=== PATIENT | female | born 1950 | race African-American/Black ===

== ENCOUNTER 2020-03-14 19:44 | Emergency (ER) | payer OTHER ==
[~2020-03-14] VITALS: Ht 162.6 cm; Wt 65.3 kg
--- NOTE | ~2020-03-14 | EMS ---
[address] [address] EMS Patient Care Report Name: PATRICIA SHELTON Room #: REG LISA Carson#: [id number] Admission: 03/14/20 Attend Phys: Discharge: Date of : 50 Report #: [id number] THIS REPORT FOR: //name// Report Transmitted: 03/15/2020 00:13 EMS Care Summary [place], [place]/[facility] Incident [id number] @ 03/14/2020 18:57 Incident Location [address] [place], [place] [id number] Patient PATRICIA SHELTON Female, 69 Years 1950 Patient Address [address] [place] [id number] Patient History Neurological Condition - Other, Patient Allergies Aspirin, Patient Medications None Reported, Xanax, Warfarin, Chief Complaint NAUSEA / VOMITING Disposition Transported No Lights/[place] Dispatch Reason Hemorrhage/Laceration Transported To [facility] Narrative ON SCENE. M35 DONS PPE AND SPEAKS WITH P29 CREW OUTSIDE. PT FOUND WITH P29 CREW IN APARTMENT. PT IS IN MINOR DISTRESS BUT IS ABLE TO SPEAK IN FULL SENTENCES. [facility] [address] [place] [address] EMS Patient Care Report Name: PATRICIA SHELTON Room #: REG LISA Carson#: [id number] Admission: 03/14/20 Attend Phys: Discharge: Date of : 50 Report #: [id number] PT STATES SHE HAS BEEN OMITING AND HAVING DIAHREA FOR 2 DAYS AND HAS BEEN UNABLE TO KEEP FOOD OR DRINK DOWN. PT IS AAOX4 GCS 15 AND CONSENTING TO TREATMENT AND TRANSPORT. PT WALKS WITH MINOR ASSISTANCE TO STRETCHER IN APARTMENT. P29 STATE VITAL SIGNS ARE WITHIN NORMAL LIMITS. PT HAS MASK ON FACE PRIOR TO ARRIVAL. PT REQUESTS VOMIT SACK WHILE BEING MOVED TO ELEVATOR. PT IS ALSO COMPLAINING OF NUMBNESS IN EXTREMETIES AND CRAMPING. PT IS LOADED TO AMBULANCE AND IV ACCESS IS EVALUATED. PT STATES SHE USUALLY NEEDS A VEIN FINDER. M35 DOES CANCELS IV ACCESS ATTEMPT. ORAL ZOFRAN IS GIVEN TO PT. TRANSPORT INITIATED. PT HAS VOMIT BAG READY AND IS IN ABVIOUS DISTRESS, BUT DOES NOT VOMIT. PT STATES SHE FEELS SLIGHT RELEIFS AFTER OFRAN ADMIN. ARRIVAL AT HOSPITAL. PT IS MOVED FROM AMBULANCE INTO [facility] WITHOUT INCIDENT AND ONTO BED SAFELY. PT CARE SUCCESSFULLY TRANSFERRED TO [facility] NURSING STAFF. Initial Vitals @19:19P: 85,R: 20,BP: 108/68,Pain: 10/10,GCS: 15,Glucose: 120,SpO2: 100,Revised Trauma: 12, @19:32P: 96,R: 18,BP: 137/90,Pain: 10/10,GCS: 15,CO: 2,SpO2: 97,Revised Trauma: 12, Assessments @19:40MENTAL:Person Oriented,Event Oriented,Time Oriented,Place Oriented,SKIN:HEENT:Eyes: Left Pupil: 3-mm,Eyes: Right Pupil: 3-mm,Neck/Airway: No Abnormalities,LUNG SOUNDS:Right Upper: Other,General: Diarrhea,General: Nausea,Left Upper: Other,General: Vomiting,Left Lower: No Abnormalities,Right Lower: No Abnormalities,ABDOMEN:Right Upper: Other,General: Diarrhea,General: Nausea,Left Upper: Other,General: Vomiting,Left Lower: No Abnormalities,Right Lower: No Abnormalities,PELVIS//GI:Rectal Bleeding,EXTREMITIES:Left Arm: Abnormal Sensation,Left Leg: Abnormal Sensation,Right Leg: Abnormal Sensation,Right Arm: Abnormal Sensation,Capillary Refill: Right Upper: 3 Sec,PULSE:Radial: 2+ Normal,NEURO:@19:40MENTAL:SKIN:HEENT:LUNG SOUNDS:General: Nausea,ABDOMEN:General: Nausea,PELVIS//GI:EXTREMITIES:PULSE:NEURO: Impression COVID-19 - Suspected - no known exposure Procedures @19:30StretcherResponse: Unchanged@19:10ALS AssessmentResponse: UnchangedSucceeded@19:37Zofran - 4 Milligrams (mg) - OralResponse: Unchanged Timeline 18:54,Call Received 18:54,Dispatch Notified 18:57,Dispatched 18:57,En Route 19:04,On Scene [address] [address] EMS Patient Care Report Name: PATRICIA SHELTON Room #: REG LISA Carson#: [id number] Admission: 03/14/20 Attend Phys: Discharge: Date of : 50 Report #: [id number] 19:10,At Patient 19:10,ALS Assessment,Response: UnchangedSucceeded, 19:19,BP: 108/68 M,PULSE: 85,RR: 20 R,SPO2: 100 Ox,ETCO2: ,B,PAIN: 10,GCS: 15, 19:23,Depart Scene 19:30,Stretcher,Response: Unchanged 19:32,BP: 137/90 M,PULSE: 96,RR: 18 R,SPO2: 97 Ox,ETCO2: ,BG: ,PAIN: 10,GCS: 15, 19:37,Zofran - 4 Milligrams (mg) - Oral,Response: Unchanged 19:40,At Destination 20:03,Call Closed Disclaimer [email or web address] Copyright 2020 [employer] This EMS Care Summary contains data elements from the applicable legal record (which may be displayed differently). It is designed to provide pertinent information for the following purposes: continuity of care, clinical quality, and state data reporting. The complete legal record is available to ED staff and administrators of the receiving hospital in [employer]s Patient Tracker. All data is provided "as is."
[~2020-03-14 19:44] MED LIST: ADULT LOW DOSE81 MG; ALPRAZOLAM 0.50.5 M1; BUDEPRION SR150 MG; COUMADIN 5 MG TA5 M1; NEXIUM40 MG; OMEGA-3100 MG; SENNA S TABLET1 EACH PO; STOOL SOFTENER240 MG
[2020-03-14 20:53] LABS: ABSOLUTE NEUTROPHILS 2.7 thou/uL (1.4-8.2); BASOPHILS 0.7 % (0.0-2.0); HEMATOCRIT 30.3 % (37.0-47.0); HEMOGLOBIN 10.2 gm/dL (12.0-15.0); LYMPHOCYTES 31.2 % (24.0-44.0); MCH 29.9 pg (26.0-34.0); MCHC 33.6 g/dL (28.0-37.0); MONOCYTES 5.2 % (1.0-8.0); PLATELET COUNT 260 thou/uL (150-400); POLYS 61.9 % (36.0-66.0); RDW 14.4 % (10.5-14.5); WBC 4.4 thou/uL (4.0-11.0)
[2020-03-14 21:05] LABS: CALCIUM 9.3 mg/dL (8.5-10.1); CREATININE 1.5 mg/dL (0.6-1.0); POTASSIUM 3.1 mmol/L (3.5-5.1)
[2020-03-14 21:11] LABS: TOTAL BILIRUBIN 0.5 mg/dL (0.2-1.0); TOTAL PROTEIN 7.9 g/dL (6.4-8.2)
[2020-03-14 21:51] LABS: URINE BILIRUBIN NEGATIVE (Negative); URINE BLOOD NEGATIVE (Negative); URINE CLARITY CLEAR; URINE COLOR YELLOW; URINE GLUCOSE-RANDOM* NEGATIVE (Negative); URINE KETONES NEGATIVE (Negative); URINE NITRITE-REFLEX NEGATIVE (Negative); URINE PROTEIN (DIPSTICK) NEGATIVE (Negative); URINE UROBILINOGEN 0.2 E.U./dl (0.2-1.0)
[2020-03-14 21:53] LABS: URINE LEUKOCYTES-REFLEX 3+ (Negative)
[2020-03-14 22:08] LABS: CASTS None Seen /LPF (None Seen); CRYSTALS None Seen /LPF (None Seen); SQUAMOUS 4-10 Moderate /LPF (0-3)
[2020-03-14 22:09] LABS: BACTERIA-REFLEX 1-9 Few /HPF (None Seen); URINE RBC None Seen /HPF (0-2); URINE WBC-REFLEX 6-15 Few /HPF (0-5)
[2020-03-14 22:44] LABS: INR 1.8; PROTIME 18.2 Seconds (9.3-11.4)
[2020-03-15] MEDS ORDERED: KEFLEX500 M1 PO (01:56)
[2020-03-15 03:25] VITALS: BP 130/78
== END 2020-03-15 03:20 | disposition home or self-care (01) ==
LOC: ER 19:44
PROVIDERS: Emergency Medicine
DX: N39.0 Urinary tract infection, site not specified (principal); E87.6 Hypokalemia; R11.2 Nausea with vomiting, unspecified; R19.7 Diarrhea, unspecified; R10.13 Epigastric pain; Z90.49 Acquired absence of other specified parts of digestive tract; Z90.711 Acquired absence of uterus with remaining cervical stump; Z79.899 Other long term (current) drug therapy; Z79.01 Long term (current) use of anticoagulants; Z79.82 Long term (current) use of aspirin; Z88.6 Allergy status to analgesic agent; Z88.5 Allergy status to narcotic agent; Z87.891 Personal history of nicotine dependence